=== PATIENT | female | born 1960 | race Caucasian/White ===

== ENCOUNTER 2016-03-09 08:16 | Inpatient (IN) | payer OTHER ==
[~2016-03-09] VITALS: Ht 152.4 cm; Wt 46.5 kg
[2016-03-09] VITALS (9 sets, daily range): BP systolic 97–162; BP diastolic 50–80; PULSE 68–104; RESP 14–24; TEMP 97.5; O2SAT 95–98
[~2016-03-09 08:16] MED LIST: CELE40TA PO
[2016-03-09] MEDS ORDERED: SIMV20TA PO (08:55)
[2016-03-09] MEDS ORDERED: OXYC-392 PO (08:55)
[2016-03-09] MEDS ORDERED: SODIUM CHLOR 0.9% 1000 ML INJ 1,000 ML IV SCH (09:57)
[2016-03-09] MEDS ORDERED: FAMOTIDINE 20 MG/2 ML VIAL IV PUSH ONE (10:00)
[2016-03-09] MEDS ORDERED: ONDANSETRON HCL 4 MG/2 ML VIAL IVP ONE (10:00)
[2016-03-09] MEDS ORDERED: MORPHINE SULFATE 4 MG/ML INJ IV PUSH ONE (10:00)
[2016-03-09] MEDS ORDERED: SODIUM CHLORIDE 0.9% FLUSH 5 ML FLUSH IVF PRN (10:00)
[2016-03-09 10:29] LABS: AUTOMATED NEUTROPHIL # 9.4 TH/MM3 (1.8-7.7); BASOPHIL % 0.3 % (0.0-2.0); EOSINOPHIL # 0.1 TH/MM3 (0-0.4); EOSINOPHIL % 0.7 % (0.0-4.0); HEMATOCRIT 41.7 % (35.0-46.0); HEMO FLAGS DIFF FINAL; LYMPH % 14.1 % (9.0-44.0); LYMPHOCYTE # 1.8 TH/MM3 (1.0-4.8); MEAN CELL VOLUME 88.9 FL (80.0-100.0); MEAN CORPUSCULAR HEMOGLOBIN 29.8 PG (27.0-34.0); MEAN CORPUSCULAR HGB CONC 33.5 % (32.0-36.0); MONO % 11.4 % (0.0-8.0); NEUT % 73.5 % (16.0-70.0); PLATELET COUNT 356 TH/MM3 (150-450); RED BLOOD COUNT 4.69 MIL/MM3 (4.00-5.30); RED CELL DISTRIBUTION WIDTH 13.7 % (11.6-17.2); WHITE BLOOD COUNT 12.9 TH/MM3 (4.0-11.0)
[2016-03-09 10:31] LABS: BLOOD, URINE NEG (NEG); COMMENT (UR) CULT NOT INDICATED; CULTURE IF INDICATED CULT NOT INDICATED; GLUCOSE,URINE NEG (NEG); KETONE, URINE NEG (NEG); NITRITE,URINE NEG (NEG); SQUAMOUS EPITHELIAL CELL URINE 2 /hpf (0-5); URINE COLOR YELLOW (YELLW/STRAW)
[2016-03-09 10:37] LABS: APTT (PATIENT) 28.9 SEC (24.3-30.1); PROTHROMBIN TIME - PATIENT 10.7 SEC (9.8-11.6)
--- NOTE | 2016-03-09 10:59 | RADRPT ---
EXAM DATE/TIME: 03/09/2016 10:38 [facility] COMPARISON: No previous studies available for comparison. INDICATIONS : Left upper quadrant pain. MEDICAL HISTORY : Pancreatitis. SURGICAL HISTORY : None. ENCOUNTER: Initial ACUITY: 3 days PAIN SCORE: 8/10 LOCATION: Left upper quadrant FINDINGS: A single view of the chest demonstrates the lungs to be symmetrically aerated without evidence of mas s, infiltrate or effusion. The cardiomediastinal contours are unremarkable. Osseous structures are intact. CONCLUSION: No acute disease. Ankush Heredia MD FACR on March 09, 2016 at 10:58 Board Certified Radiologist. This report was verified electronically.
[2016-03-09 11:03] LABS: ANION GAP 8 MEQ/L (5-15); AST (GOT) 19 U/L (15-37); BICARBONATE 29.6 MEQ/L (21.0-32.0); BLOOD UREA NITROGEN 6 MG/DL (7-18); CHLORIDE 101 MEQ/L (98-107); GLOMERULAR FILTRATION RATE 108 ML/MIN (>89); POTASSIUM 3.7 MEQ/L (3.5-5.1); SODIUM (NA) 139 MEQ/L (136-145)
[2016-03-09 11:08] LABS: ALKALINE PHOSPHATASE 97 U/L (45-117); ALT (GPT) 35 U/L (10-53); TOTAL BILIRUBIN ADULT 0.3 MG/DL (0.2-1.0)
[2016-03-09] MEDS ORDERED: MORPHINE SULFATE 8 MG/ML INJ IV PUSH ONE (12:00)
[2016-03-09] MEDS ORDERED: IOHEXOL 350 MG/ML 10 ML VIAL (for RAD DIAG) IV ONE (12:53)
--- NOTE | 2016-03-09 13:41 | RADRPT ---
EXAM DATE/TIME: 03/09/2016 12:46 [facility] COMPARISON: No previous studies available for comparison. INDICATIONS : Abdominal pain for three days. IV CONTRAST: 96 cc Omnipaque 350 (iohexol) IV ORAL CONTRAST: No oral contrast ingested. RADIATION DOSE: 9.96 CTDIvol (mGy) MEDICAL HISTORY : Pancreatic cyst. SURGICAL HISTORY : None. ENCOUNTER: Initial ACUITY: 3 days PAIN SCALE: 5/10 LOCATION: Bilateral upper quadrant TECHNIQUE: Volumetric scanning of the abdomen and pelvis was performed. Using automated exposure control and ad justment of the mA and/or kV according to patient size, radiation dose was kept as low as reasonably achievable to obtain optimal diagnostic quality images. FINDINGS: LOWER LUNGS: The visualized lower lungs are clear. LIVER: Homogeneous density without lesion. There is no dilation of the biliary tree. No calcified gallston es. SPLEEN: Normal size without lesion. PANCREAS: Pancreas is normal size with ectatic and prominent pancreatic duct throughout to 6 mm in width in the body and head. There mild inflammatory changes in the peripancreatic region of the head and adjacent body suggesting pancreatitis. KIDNEYS: Normal in size and shape. There is no mass, stone or hydronephrosis. Small cyst upper pole of the le ft kidney ADRENAL GLANDS: Within normal limits. VASCULAR: There is no aortic aneurysm. BOWEL/MESENTERY: The stomach, small bowel, and colon demonstrate no acute abnormality. There is no free intraperitone al air or fluid. Appendix visualized and normal. A few uncomplicated diverticuli of the proximal sigm oid colon. \ ABDOMINAL WALL: Within normal limits. RETROPERITONEUM: There is no lymphadenopathy. BLADDER: No wall thickening or mass. REPRODUCTIVE: Within normal limits. INGUINAL: There is no lymphadenopathy or hernia. MUSCULOSKELETAL: Within normal limits for patient age. CONCLUSION: Abnormal pancreas with dilated ectatic pancreatic duct throughout up to 6 mm in width with inflammatory changes in the peripancreatic fat in the region of the head of pancreas as well as adjacent body consistent with pancreatitis. A few uncomplicated diverticuli sigmoid colon. Trae Cason MD on March 09, 2016 at 13:35 Board Certified Radiologist. This report was verified electronically.
[2016-03-09] MEDS ORDERED: MAGNESIUM HYDROXIDE SUSP 30 ML CUP PO PRN (14:30)
[2016-03-09] MEDS ORDERED: ACETAMINOPHEN 325 MG TAB PO PRN (14:30)
[2016-03-09] MEDS ORDERED: NALOXONE HCL 0.4 MG/ML AMP IV PRN (14:30)
[2016-03-09] MEDS ORDERED: BISACODYL 10 MG SUPP PR PRN (14:30)
[2016-03-09] MEDS ORDERED: ONDANSETRON HCL 4 MG/2 ML VIAL IVP PRN (14:30)
[2016-03-09] MEDS: NS + KCL 20 MEQ INJ 1,000 ML IV SCH (15:15)
--- NOTE | 2016-03-09 15:44 | PD ---
HPI Chief Complaint: Abdominal Pain Time Seen by Provider: 09:50 Travel History International Travel<30 days: No Contact w/Intl Traveler<30days: No Traveled to known affect area: No History of Present Illness HPI Patient is a 55-year-old female who presents to emergency room with complaints of abdominal pain. Patient reports that she has had epigastric abdominal pain for the past 7 months, reports that she has had multiple studies including CAT scans of her abdomen pelvis and reports that "no one could tell me why I was having all this pain." Patient reports that after she followed up with Dr. Eduardo and had an endoscopy which was benign. Reports that Dr Eduardo ordered a ct of her abd pelvis last week and reports that they found a pancreatic cyst. Reports that she used to be an alcoholic and quit drinking "a few years ago." Reports that she was diagnosed with pancreatitis 3 years ago most likely secondary to alcoholism, - reports that this is when she stopped drinking. Patient reports that the pain has been more severe over the past couple days, reports increased nausea with no vomiting or diarrhea. Patient reports that she is prescribed oxycodone 5 mg her pain, reports that this has not been helping for symptoms at all. Patient with no fevers or chills or no other complaints at this time. PFSH Past Medical History Depression: Yes Diabetes: No Psychiatric: Yes Immunizations Current: Yes Menopausal: Yes Past Surgical History Gynecologic Surgery: Yes (LEFT OVARY) Family History Family History: Negative Social History Alcohol Use: No (quit a week ago) Tobacco Use: Yes (8 CIGS DAILY) Substance Use: Yes (2 GLASSES WINE DAILY/DRANK WINE TONIGHT) Allergies-Medications (Allergen,Severity, Reaction): Coded Allergies: No Known Allergies (Unverified , 03/09/16) Reported Meds & Prescriptions Reported Meds & Active Scripts Active Reported Oxycodone (Oxycodone HCl) 5 Mg Tab 5 Mg PO Q4H PRN Simvastatin 20 Mg Tab 20 Mg PO DAILY Review of Systems General / Constitutional: No: Fever Eyes: No: Visual changes HENT: No: Headaches Cardiovascular: No: Chest Pain or Discomfort Respiratory: No: Shortness of Breath Gastrointestinal: Positive: Nausea, Abdominal Pain, No: Vomiting, Diarrhea Genitourinary: No: Dysuria Musculoskeletal: No: Pain Skin: No Rash Neurologic: No: Weakness Psychiatric: No: Depression Endocrine: No: Polydipsia Hematologic/Lymphatic: No: Easy Bruising Physical Exam Narrative GENERAL: Patient in moderate distress SKIN: Warm and dry. HEAD: Atraumatic. Normocephalic. EYES: Pupils equal and round. No scleral icterus. No injection or drainage. ENT: No nasal bleeding or discharge. Mucous membranes pink and moist. NECK: Trachea midline. No JVD. CARDIOVASCULAR: Regular rate and rhythm. No murmur appreciated. RESPIRATORY: No accessory muscle use. Clear to auscultation. Breath sounds equal bilaterally. GASTROINTESTINAL: Abdomen soft, increased tenderness to her epigastrium with guarding on exam MUSCULOSKELETAL: No obvious deformities. No clubbing. No cyanosis. No edema. NEUROLOGICAL: Awake and alert. No obvious cranial nerve deficits. Motor grossly within normal limits. Normal speech. PSYCHIATRIC: Appropriate mood and affect; insight and judgment normal. Data Data Last Documented VS Vital Signs Date Time Temp Pulse Resp B/P Pulse Ox O2 Delivery O2 Flow Rate FiO2 03/09/16 12:34 16 03/09/16 12:25 96 131/63 96 Room Air 03/09/16 08:17 97.5 Orders Complete Blood Count With Diff (03/09/16 09:57) Comprehensive Metabolic Panel (03/09/16 09:57) Lipase (03/09/16 09:57) Lactic Acid (03/09/16 09:57) Prothrombin Time / Inr (Pt) (03/09/16 09:57) Act Partial Throm Time (Ptt) (03/09/16 09:57) Urinalysis - C+S If Indicated (03/09/16 09:57) Ct Abd/Pel W Iv Contrast(Rout) (03/09/16 09:57) Iv Access Insert/Monitor (03/09/16 09:57) Ecg Monitoring (03/09/16 09:57) Oximetry (03/09/16 09:57) NPO (03/09/16 09:57) Morphine Inj (Morphine Inj) (03/09/16 10:00) Ondansetron Inj (Zofran Inj) (03/09/16 10:00) Sodium Chlor 0.9% 1000 Ml Inj (Ns 1000 M (03/09/16 09:57) Sodium Chloride 0.9% Flush (Ns Flush) (03/09/16 10:00) Electrocardiogram (03/09/16 09:57) Chest, Single Ap (03/09/16 09:57) Famotidine Inj (Pepcid Inj) (03/09/16 10:00) Morphine Inj (Morphine Inj) (03/09/16 12:00) Iohexol 350 Inj (Omnipaque 350 Inj) (03/09/16 12:53) Place In Observation (03/09/16 ) Vital Signs (Adult) Q4H (03/09/16 14:17) Activity Oob With Assistance (03/09/16 14:17) Skirt Clipper / Telemetry .CONTINUOUS (03/09/16 14:17) Intake + Output MIHAELA.QSHIFT (03/09/16 14:17) Diet Npo (03/09/16 Dinner) Sodium Chloride 0.9% Flush (Ns Flush) (03/09/16 14:30) Sodium Chloride 0.9% Flush (Ns Flush) (03/09/16 21:00) Acetaminophen (Tylenol) (03/09/16 14:30) Ondansetron Inj (Zofran Inj) (03/09/16 14:30) Bisacodyl Supp (Dulcolax Supp) (03/09/16 14:30) Docusate Sodium (Colace) (03/09/16 21:00) Magnesium Hydroxide Liq (Milk Of Magnesi (03/09/16 14:30) Sennosides (Senokot) (03/09/16 14:30) Comprehensive Metabolic Panel (03/10/16 06:00) Complete Blood Count With Diff (03/10/16 06:00) Lipase (03/10/16 06:00) Case Management Consult (03/09/16 14:17) Scd Bilateral/Knee High MIHAELA.BID (03/09/16 14:17) Morphine Inj (Morphine Inj) (03/09/16 14:30) Morphine Inj (Morphine Inj) (03/09/16 14:30) Naloxone Inj (Narcan Inj) (03/09/16 14:30) Pantoprazole Inj (Protonix Inj) (03/10/16 09:00) Ns + Kcl 20 Meq Inj (Ns + Kcl 20 Meq Inj (03/09/16 15:00) Admit Order (Ed Use Only) (03/09/16 15:01) Labs Laboratory Tests Test 03/09/16 03/09/16 10:00 10:05 Urine Color YELLOW Urine Turbidity CLEAR Urine pH 7.0 Urine Specific [place] 1.007 Urine Protein NEG mg/dL Urine Glucose (UA) NEG mg/dL Urine Ketones NEG mg/dL Urine Occult Blood NEG Urine Nitrite NEG Urine Bilirubin NEG Urine Urobilinogen LESS THAN 2.0 MG/DL Urine Leukocyte Esterase SMALL Urine RBC 1 /hpf Urine WBC 2 /hpf Urine Squamous Epithelial 2 /hpf Cells Microscopic Urinalysis Comment CULT NOT INDICATED White Blood Count 12.9 TH/MM3 Red Blood Count 4.69 MIL/MM3 Hemoglobin 14.0 GM/DL Hematocrit 41.7 % Mean Corpuscular Volume 88.9 FL Mean Corpuscular Hemoglobin 29.8 PG Mean Corpuscular Hemoglobin 33.5 % Concent Red Cell Distribution Width 13.7 % Platelet Count 356 TH/MM3 Mean Platelet Volume 7.7 FL Neutrophils (%) (Auto) 73.5 % Lymphocytes (%) (Auto) 14.1 % Monocytes (%) (Auto) 11.4 % Eosinophils (%) (Auto) 0.7 % Basophils (%) (Auto) 0.3 % Neutrophils # (Auto) 9.4 TH/MM3 Lymphocytes # (Auto) 1.8 TH/MM3 Monocytes # (Auto) 1.5 TH/MM3 Eosinophils # (Auto) 0.1 TH/MM3 Basophils # (Auto) 0.0 TH/MM3 CBC Comment DIFF FINAL Differential Comment Prothrombin Time 10.7 SEC Prothromb Time International 1.0 RATIO Ratio Activated Partial 28.9 SEC Thromboplast Time Sodium Level 139 MEQ/L Potassium Level 3.7 MEQ/L Chloride Level 101 MEQ/L Carbon Dioxide Level 29.6 MEQ/L Anion Gap 8 MEQ/L Blood Urea Nitrogen 6 MG/DL Creatinine 0.58 MG/DL Estimat Glomerular Filtration 108 ML/MIN Rate Random Glucose 94 MG/DL Lactic Acid Level 0.8 mmol/L Calcium Level 9.4 MG/DL Total Bilirubin 0.3 MG/DL Aspartate Amino Transf 19 U/L (AST/SGOT) Alanine Aminotransferase 35 U/L (ALT/SGPT) Alkaline Phosphatase 97 U/L Total Protein 7.4 GM/DL Albumin 4.1 GM/DL Lipase 47311 U/L MDM Medical Decision Making Medical Screen Exam Complete: Yes Emergency Medical Condition: Yes Interpretation(s) EKG at 1042: Normal sinus rhythm at 76 bmp, qt/qtc: 384/414, no acute st or t wave changes Vital Signs Date Time Temp Pulse Resp B/P Pulse Ox O2 Delivery O2 Flow Rate FiO2 03/09/16 12:34 16 03/09/16 12:30 20 03/09/16 12:25 96 19 131/63 96 Room Air 03/09/16 08:17 97.5 104 24 162/69 97 Room Air Laboratory Tests Test 03/09/16 03/09/16 10:00 10:05 Urine Color YELLOW (YELLW/STRAW) Urine Turbidity CLEAR (CLEAR) Urine pH 7.0 (5.0-8.5) Urine Specific [place] 1.007 (1.002-1.035) Urine Protein NEG mg/dL (NEG-TRACE) Urine Glucose (UA) NEG mg/dL (NEG) Urine Ketones NEG mg/dL (NEG) Urine Occult Blood NEG (NEG) Urine Nitrite NEG (NEG) Urine Bilirubin NEG (NEG) Urine Urobilinogen LESS THAN 2.0 MG/DL (LESS THAN 2.0) Urine Leukocyte Esterase SMALL (NEG) Urine RBC 1 /hpf (0-3) Urine WBC 2 /hpf (0-5) Urine Squamous Epithelial 2 /hpf (0-5) Cells Microscopic Urinalysis Comment CULT NOT INDICATED White Blood Count 12.9 TH/MM3 (4.0-11.0) Red Blood Count 4.69 MIL/MM3 (4.00-5.30) Hemoglobin 14.0 GM/DL (11.6-15.3) Hematocrit 41.7 % (35.0-46.0) Mean Corpuscular Volume 88.9 FL (80.0-100.0) Mean Corpuscular Hemoglobin 29.8 PG (27.0-34.0) Mean Corpuscular Hemoglobin 33.5 % Concent (32.0-36.0) Red Cell Distribution Width 13.7 % (11.6-17.2) Platelet Count 356 TH/MM3 (150-450) Mean Platelet Volume 7.7 FL (7.0-11.0) Neutrophils (%) (Auto) 73.5 % (16.0-70.0) Lymphocytes (%) (Auto) 14.1 % (9.0-44.0) Monocytes (%) (Auto) 11.4 % (0.0-8.0) Eosinophils (%) (Auto) 0.7 % (0.0-4.0) Basophils (%) (Auto) 0.3 % (0.0-2.0) Neutrophils # (Auto) 9.4 TH/MM3 (1.8-7.7) Lymphocytes # (Auto) 1.8 TH/MM3 (1.0-4.8) Monocytes # (Auto) 1.5 TH/MM3 (0-0.9) Eosinophils # (Auto) 0.1 TH/MM3 (0-0.4) Basophils # (Auto) 0.0 TH/MM3 (0-0.2) CBC Comment DIFF FINAL Differential Comment Prothrombin Time 10.7 SEC (9.8-11.6) Prothromb Time International 1.0 RATIO Ratio Activated Partial 28.9 SEC Thromboplast Time (24.3-30.1) Sodium Level 139 MEQ/L (136-145) Potassium Level 3.7 MEQ/L (3.5-5.1) Chloride Level 101 MEQ/L (98-107) Carbon Dioxide Level 29.6 MEQ/L (21.0-32.0) Anion Gap 8 MEQ/L (5-15) Blood Urea Nitrogen 6 MG/DL (7-18) Creatinine 0.58 MG/DL (0.50-1.00) Estimat Glomerular Filtration 108 ML/MIN Rate (>89) Random Glucose 94 MG/DL (74-106) Lactic Acid Level 0.8 mmol/L (0.4-2.0) Calcium Level 9.4 MG/DL (8.5-10.1) Total Bilirubin 0.3 MG/DL (0.2-1.0) Aspartate Amino Transf 19 U/L (15-37) (AST/SGOT) Alanine Aminotransferase 35 U/L (10-53) (ALT/SGPT) Alkaline Phosphatase 97 U/L (45-117) Total Protein 7.4 GM/DL (6.4-8.2) Albumin 4.1 GM/DL (3.4-5.0) Lipase 37905 U/L (73-393) Last Impressions Chest X-Ray 03/09/16 0957 Signed Impressions: Service Date/Time: Wednesday, March 09, 2016 10:38 - CONCLUSION: No acute disease. Ankush Heredia MD FACR Abdomen/Pelvis CT 03/09/16956 Signed Impressions: Service Date/Time: Wednesday, March 09, 2016 12:46 - CONCLUSION: Abnormal pancreas with dilated ectatic pancreatic duct throughout up to 6 mm in width with inflammatory changes in the peripancreatic fat in the region of the head of pancreas as well as adjacent body consistent with pancreatitis. A few uncomplicated diverticuli sigmoid colon. Trae Cason MD Differential Diagnosis Acute pancreatitis, ACS, acute gastritis, gastric enteritis, gastric ulcer, electrolyte abnormality Narrative Course Patient is a 55-year-old female who presents to emergency room with complaints of epigastric abdominal pain for the past 7 months. She was recently seen by her GI doctor or Dr. Eduardo with Gi at [facility] and was diagnosed with a pancreatic cyst last week. Patient reports excruciating pain over the past few days with increased nausea. Patient was placed on monitor upon arrival to emergency room. CBC, BMP, lipase as well as CT abdomen pelvis ordered for further evaluation of symptoms. cbc; WBC 12.9 Hemoglobin 14 Hematocrit 41.7 Platelets 356 BMP Sodium 139 Chloride 101 Potassium 3.7 CO2 29.6 Lactic acid 0.8 Lipase 22,589 Chest x-ray: No acute disease CAT scan of abdomen and pelvis with IV contrast: Last Impressions Chest X-Ray 03/09/16956 Signed Impressions: Service Date/Time: Wednesday, March 09, 2016 10:38 - CONCLUSION: No acute disease. Ankush Heredia MD [facility]Pelvis CT 03/09/16956 Signed Impressions: Service Date/Time: Wednesday, March 09, 2016 12:46 - CONCLUSION: Abnormal pancreas with dilated ectatic pancreatic duct throughout up to 6 mm in width with inflammatory changes in the peripancreatic fat in the region of the head of pancreas as well as adjacent body consistent with pancreatitis. A few uncomplicated diverticuli sigmoid colon. Trae Cason MD All labs and studies reviewed with patient in detail. Patient uncomfortable and unable to be discharged home safely. Patient will be admitted to medicine service Case discussed with Dr. Garcia who accepts patient to service. Diagnosis Primary Impression: Acute pancreatitis Qualified Code: K85.90 - Acute pancreatitis, unspecified complication status, unspecified pancreatitis type Admitting Information Admitting Physician Requests: Admit Nani Mathis DO Mar 09, 2016 15:44
--- NOTE | 2016-03-09 15:49 | HHI.HP ---
Dr. Eduardo [facility] Service [facility] Primary Care Physician Non-Staff Admission Diagnosis Acute Pancreatitis Diagnoses: Chief Complaint: Abdominal pain Travel History International Travel<30 Days: No Contact w/Intl Traveler <30 Da: No Traveled to Known Affected Are: No History of Present Illness 55-year-old female with a past medical history of chronic abdominal pain and hyperlipidemia who presented with 2 days acute worsening of her abdominal pain. The patient has been having chronic abdominal pain for the past 7 months. She states that the pain is intermittent. She has been undergoing workup with her first aid instructor, Dr. Eduardo. She states that for the past 2 days the pain is becoming constant, 10/10 in severity, sharp, radiating to the back. She case he has associated nausea. She denies any fevers, chills, or dysuria. She's been taking pain medications at home more frequently, having secondary constipation. She states she had a CAT scan done 7 months ago that was reportedly unremarkable. She states her first aid instructor performed an endoscopic ultrasound which showed nothing to biopsy or perform nerve block. She states due to continued pain she had a repeat CAT scan done last week. She was called by her first aid instructor last Wednesday he said that she has a cyst on her pancreas, but she has been unable to follow up with him because of the severity of pain. Past history of alcohol abuse, had cut back to drinking 1 or 2 beers weekly, last drink about 5 days ago. Review of Systems Other 10 point review of systems performed and was negative except as stated in the history of present illness Past Family Social History Past Medical History Hyperlipidemia Chronic abdominal pain Past Surgical History Left ovary removal Endoscopic ultrasound Reported Medications Oxycodone (Oxycodone HCl) 5 Mg Tab 5 Mg PO Q4H PRN Simvastatin 20 Mg Tab 20 Mg PO DAILY Allergies: Coded Allergies: No Known Allergies (Unverified , 03/09/16) Active Ordered Medications Current Medications Medications (Trade) Dose Ordered Sig/Ever Route Start Time Stop Time Status Last Admin (NS Flush) 2 ml UNSCH PRN FLUSH 03/09/16 14:30 (NS Flush) 2 ml BID FLUSH 03/09/16 21:00 (Tylenol) 650 mg Q4H PRN PO 03/09/16 14:30 (Zofran Inj) 4 mg Q6H PRN IVP 03/09/16 14:30 (Dulcolax Supp) 10 mg DAILY PRN SC 03/09/16 14:30 (Colace) 100 mg Q12H PO 03/09/16 21:00 (Milk Of Magnrg Liq) 30 ml Q12H PRN PO 03/09/16 14:30 (Senokot) 17.2 mg Q12H PRN PO 03/09/16 14:30 (Morphine Inj) 2 mg Q3H PRN IV 03/09/16 14:30 (Morphine Inj) 4 mg Q3H PRN IV 03/09/16 14:30 (Narcan Inj) 0.4 mg UNSCH PRN IV 03/09/16 14:30 Pantoprazole Sodium 40 mg 40 mg Q24H IV PUSH 03/10/16 09:00 (NS + KCl 20 Meq Inj) 1,000 ml @ 100 mls/hr Q10H IV 03/09/16 15:00 03/09/16 15:15 Family History DM Social History History of alcohol abuse Tobacco use Occasional marijuana use Physical Exam Vital Signs Vital Signs Date Time Temp Pulse Resp B/P Pulse Ox O2 Delivery O2 Flow Rate FiO2 03/09/16 15:16 82 18 101/52 96 Room Air 03/09/16 12:34 16 03/09/16 12:30 20 03/09/16 12:25 96 19 131/63 96 Room Air 03/09/16 08:17 97.5 104 24 162/69 97 Room Air Physical Exam GENERAL: Well-developed well-nourished. In no acute distress. SKIN: Warm and dry. No lesions noted. HEENT: Normocephalic. Pupils equal and round. Mucous membranes pink and moist. CARDIOVASCULAR: Regular rate and rhythm. No murmur appreciated. RESPIRATORY: No accessory muscle use. Clear to auscultation. Breath sounds equal bilaterally. GASTROINTESTINAL: Abdomen soft, epigastric TTP, nondistended. Bowel sounds x4. MUSCULOSKELETAL: No obvious deformities. No clubbing or cyanosis. No edema. NEUROLOGICAL: Awake and alert. No focal neurological deficits. Moves upper and lower extremities spontaneously. Normal speech. PSYCHIATRIC: Appropriate mood and affect; insight and judgment normal. Laboratory Laboratory Tests Test 03/09/16 03/09/16 10:00 10:05 Urine Color YELLOW Urine Turbidity CLEAR Urine pH 7.0 Urine Specific [place] 1.007 Urine Protein NEG Urine Glucose (UA) NEG Urine Ketones NEG Urine Occult Blood NEG Urine Nitrite NEG Urine Bilirubin NEG Urine Urobilinogen LESS THAN 2.0 Urine Leukocyte Esterase SMALL Urine RBC 1 Urine WBC 2 Urine Squamous Epithelial 2 Cells Microscopic Urinalysis Comment CULT NOT INDICATED White Blood Count 12.9 Red Blood Count 4.69 Hemoglobin 14.0 Hematocrit 41.7 Mean Corpuscular Volume 88.9 Mean Corpuscular Hemoglobin 29.8 Mean Corpuscular Hemoglobin 33.5 Concent Red Cell Distribution Width 13.7 Platelet Count 356 Mean Platelet Volume 7.7 Neutrophils (%) (Auto) 73.5 Lymphocytes (%) (Auto) 14.1 Monocytes (%) (Auto) 11.4 Eosinophils (%) (Auto) 0.7 Basophils (%) (Auto) 0.3 Neutrophils # (Auto) 9.4 Lymphocytes # (Auto) 1.8 Monocytes # (Auto) 1.5 Eosinophils # (Auto) 0.1 Basophils # (Auto) 0.0 CBC Comment DIFF FINAL Differential Comment Prothrombin Time 10.7 Prothromb Time International 1.0 Ratio Activated Partial 28.9 Thromboplast Time Sodium Level 139 Potassium Level 3.7 Chloride Level 101 Carbon Dioxide Level 29.6 Anion Gap 8 Blood Urea Nitrogen 6 Creatinine 0.58 Estimat Glomerular Filtration 108 Rate Random Glucose 94 Lactic Acid Level 0.8 Calcium Level 9.4 Total Bilirubin 0.3 Aspartate Amino Transf 19 (AST/SGOT) Alanine Aminotransferase 35 (ALT/SGPT) Alkaline Phosphatase 97 Total Protein 7.4 Albumin 4.1 Lipase 08141 Result Diagram: 03/09/16 1005 03/09/16 1005 Imaging Last Impressions Chest X-Ray 03/09/16956 Signed Impressions: Service Date/Time: Wednesday, March 09, 2016 10:38 - CONCLUSION: No acute disease. Ankush Heredia MD FACR Abdomen/Pelvis CT 03/09/16956 Signed Impressions: Service Date/Time: Wednesday, March 09, 2016 12:46 - CONCLUSION: Abnormal pancreas with dilated ectatic pancreatic duct throughout up to 6 mm in width with inflammatory changes in the peripancreatic fat in the region of the head of pancreas as well as adjacent body consistent with pancreatitis. A few uncomplicated diverticuli sigmoid colon. Trae Cason MD Assessment and Plan Problem List: (1) Acute pancreatitis ICD Code: K85.90 Status: Acute Assessment and Plan 55-year-old female with a past medical history of chronic abdominal pain and hyperlipidemia who presented with 2 days acute worsening of her abdominal pain Acute pancreatitis: Labs review: Lipase 23K. LFTs within normal limits. Images reviewed: Abdomen and pelvis CT were reviewed, abnormal pancreas with dilated ectatic pancreatic duct with inflammatory changes in the peripancreatic fat in the region of the head of the pancreas as well as adjacent body. Plan: Nothing by mouth, ok for ice chips. IVF. Pain control with IV narcotics as needed. Hold statin for now, follow-up triglyceride level. Antiemetics as needed. Follow-up lipase level. Once improved, and needs to continue to follow -up with her first aid instructor as outpatient for chronic abdominal pain. Educated to avoid all triggers especially including alcohol. DVT prophylaxis: SCDs Written by Ricardo Welch, acting as scribe for Dr. Garcia on 03/09/16 at 15:37. The documentation accurately reflects the work performed [id number] by me on at 1537 Code Status Full code Discussed Condition With Patient with SO at bedside, ED physician, case management Problem Qualifiers (1) Acute pancreatitis: Qualified Code: K85.90 - Acute pancreatitis, unspecified complication status, unspecified pancreatitis type Ricardo Welch Mar 09, 2016 15:49 Juan Garcia MD Mar 09, 2016 16:52
[2016-03-09] MEDS: MORPHINE SULFATE 4 MG/ML INJ IV PRN ×3 (16:10→23:29)
--- NOTE | 2016-03-09 16:39 | EKG ---
Date Performed: 03/09/2016 Time Performed: 10:42:37 PTAGE: 55 years EKG: Sinus rhythm NORMAL ECG NO PREVIOUS TRACING DOCTOR: Krystal Warren Interpretating Date/Time 03/09/2016 16:36:52
[2016-03-09] MEDS: DOCUSATE SODIUM 100 MG CAP PO SCH (21:00)
[2016-03-09] MEDS: SODIUM CHLORIDE 0.9% FLUSH 5 ML FLUSH FLUSH SCH (23:29)
[2016-03-10] VITALS (7 sets, daily range): BP systolic 80–115; BP diastolic 43–73; PULSE 73–87; RESP 14–20; TEMP 96.5–98.2; O2SAT 96–98
[2016-03-10] MEDS: NS + KCL 20 MEQ INJ 1,000 ML IV SCH ×3 (01:11→19:59)
[2016-03-10] MEDS: SODIUM CHLORIDE 0.9% FLUSH 5 ML FLUSH FLUSH PRN ×2 (02:41→21:39)
[2016-03-10] MEDS: MORPHINE SULFATE 4 MG/ML INJ IV PRN ×6 (02:45→21:38)
[2016-03-10 05:30] LABS: AUTOMATED NEUTROPHIL # 7.1 TH/MM3 (1.8-7.7); BASOPHIL % 0.4 % (0.0-2.0); EOSINOPHIL # 0.1 TH/MM3 (0-0.4); EOSINOPHIL % 1.1 % (0.0-4.0); HEMATOCRIT 34.5 % (35.0-46.0); HEMO FLAGS DIFF FINAL; LYMPH % 21.7 % (9.0-44.0); LYMPHOCYTE # 2.3 TH/MM3 (1.0-4.8); MEAN CELL VOLUME 88.6 FL (80.0-100.0); MEAN CORPUSCULAR HEMOGLOBIN 29.5 PG (27.0-34.0); MEAN CORPUSCULAR HGB CONC 33.3 % (32.0-36.0); MONO % 10.4 % (0.0-8.0); NEUT % 66.4 % (16.0-70.0); PLATELET COUNT 275 TH/MM3 (150-450); RED BLOOD COUNT 3.89 MIL/MM3 (4.00-5.30); RED CELL DISTRIBUTION WIDTH 13.8 % (11.6-17.2); WHITE BLOOD COUNT 10.6 TH/MM3 (4.0-11.0)
[2016-03-10 06:45] LABS: ALKALINE PHOSPHATASE 73 U/L (45-117); ALT (GPT) 26 U/L (10-53); ANION GAP 8 MEQ/L (5-15); AST (GOT) 17 U/L (15-37); BICARBONATE 26.7 MEQ/L (21.0-32.0); BLOOD UREA NITROGEN 6 MG/DL (7-18); CHLORIDE 104 MEQ/L (98-107); GLOMERULAR FILTRATION RATE 165 ML/MIN (>89); POTASSIUM 3.9 MEQ/L (3.5-5.1); SODIUM (NA) 139 MEQ/L (136-145); TOTAL BILIRUBIN ADULT 0.2 MG/DL (0.2-1.0)
[2016-03-10] MEDS: PANTOPRAZOLE SODIUM 40 MG VIAL IV PUSH SCH (07:47)
[2016-03-10] MEDS: SODIUM CHLORIDE 0.9% FLUSH 5 ML FLUSH FLUSH SCH ×2 (07:48→19:59)
[2016-03-10] MEDS: DOCUSATE SODIUM 100 MG CAP PO SCH ×2 (07:48→19:58)
--- NOTE | 2016-03-10 13:24 | HHI.PR ---
Subjective Remarks Follow-up pancreatitis. Improving pain scale of 6 out of 10. No nausea and vomiting. She wants to eat. Discussed with RN Objective Vitals Vital Signs Date Time Temp Pulse Resp B/P Pulse Ox O2 Delivery O2 Flow Rate FiO2 03/10/16 12:00 98.1 74 17 91/53 97 03/10/16 08:02 87 03/10/16 08:00 97.7 77 16 80/43 97 03/10/16 07:53 18 03/10/16 02:38 96.5 73 20 115/66 98 03/10/16 01:00 86 14 98/60 96 Room Air 03/09/16 20:15 80 97/60 97 Room Air 03/09/16 18:00 68 14 100/72 95 Room Air 03/09/16 17:00 72 24 105/50 96 Room Air 03/09/16 16:00 74 22 102/61 96 Room Air 03/09/16 15:16 82 18 101/52 96 Room Air I/O 03/09/16 03/09/16 03/09/16 03/10/16 03/10/16 03/10/16 07:00 15:00 23:00 07:00 15:00 23:00 Intake Total 1000 ml 1247 ml Balance 1000 ml 1247 ml Intake Oral 0 ml IV Total 1000 ml 1247 ml # Voids 1 # Bowel Movements 0 Result Diagram: 03/10/16 0458 03/10/16 0438 Objective Remarks GENERAL: Well-developed well-nourished. In no acute distress. SKIN: Warm and dry. No lesions noted. HEENT: Normocephalic. Pupils equal and round. Mucous membranes pink and moist. CARDIOVASCULAR: Regular rate and rhythm. No murmur appreciated. RESPIRATORY: No accessory muscle use. Clear to auscultation. Breath sounds equal bilaterally. GASTROINTESTINAL: Abdomen soft, epigastric TTP, nondistended. Bowel sounds x4. MUSCULOSKELETAL: No obvious deformities. No clubbing or cyanosis. No edema. NEUROLOGICAL: Awake and alert. No focal neurological deficits. Moves upper and lower extremities spontaneously. Normal speech. PSYCHIATRIC: Appropriate mood and affect; insight and judgment normal. A/P Problem List: (1) Acute pancreatitis ICD Code: K85.90 Status: Acute Assessment and Plan 55-year-old female with a past medical history of chronic abdominal pain and hyperlipidemia who presented with 2 days acute worsening of her abdominal pain Acute pancreatitis: Labs review: Lipase 23K. LFTs within normal limits. Images reviewed: Abdomen and pelvis CT were reviewed, abnormal pancreas with dilated ectatic pancreatic duct with inflammatory changes in the peripancreatic fat in the region of the head of the pancreas as well as adjacent body. Improving with lipase down to 5000. Triglycerides not elevated. Plan: Advance diet to clears. IVF. Pain control with IV narcotics as needed. Hold statin for now. Antiemetics as needed. Follow-up lipase level. Needs to continue to follow-up with her estate manager as outpatient for chronic abdominal pain. Educated to avoid all triggers especially including alcohol. We'll obtain records and discuss with patient's estate manager regarding dilated pancreatic duct Normocytic normochromic anemia secondary to the lesion. No gross bleeding. Repeat CBC in the morning DVT prophylaxis: SCDs Discharge Planning Not ready for discharge Problem Qualifiers (1) Acute pancreatitis: Qualified Code: K85.90 - Acute pancreatitis, unspecified complication status, unspecified pancreatitis type Juan Garcia MD Mar 10, 2016 13:24
[2016-03-10] MEDS: SENNOSIDES 8.6 MG TAB PO PRN (21:37)
[2016-03-10] MEDS ORDERED: diphenhydrAMINE HCL 25 MG CAP PO ONE (23:45)
[2016-03-11] VITALS: BP 99/57; PULSE 98; RESP 20; TEMP 98.1; O2SAT 97
[2016-03-11] MEDS: MORPHINE SULFATE 4 MG/ML INJ IV PRN ×2 (03:43→07:16)
[2016-03-11 04:00] VITALS: BP 101/61; PULSE 90; RESP 19; TEMP 98.1; O2SAT 94
[2016-03-11 06:51] LABS: BASOPHIL # 0.1 TH/MM3 (0-0.2); BASOPHIL % 0.5 % (0.0-2.0); EOSINOPHIL # 0.2 TH/MM3 (0-0.4); EOSINOPHIL % 1.7 % (0.0-4.0); HEMATOCRIT 33.9 % (35.0-46.0); HEMO FLAGS DIFF FINAL; LYMPH % 17.7 % (9.0-44.0); LYMPHOCYTE # 1.8 TH/MM3 (1.0-4.8); MEAN CELL VOLUME 88.7 FL (80.0-100.0); MEAN CORPUSCULAR HEMOGLOBIN 29.3 PG (27.0-34.0); MONO % 11.7 % (0.0-8.0); NEUT % 68.4 % (16.0-70.0); PLATELET COUNT 281 TH/MM3 (150-450); RED BLOOD COUNT 3.82 MIL/MM3 (4.00-5.30); RED CELL DISTRIBUTION WIDTH 13.6 % (11.6-17.2); WHITE BLOOD COUNT 10.3 TH/MM3 (4.0-11.0)
[2016-03-11 07:15] LABS: BICARBONATE 27.3 MEQ/L (21.0-32.0); MAGNESIUM 1.8 MG/DL (1.5-2.5); POTASSIUM 4.4 MEQ/L (3.5-5.1)
[2016-03-11] MEDS: NS + KCL 20 MEQ INJ 1,000 ML IV SCH (07:17)
[2016-03-11 08:00] VITALS: BP 95/53; PULSE 80; RESP 16; TEMP 98.5; O2SAT 98
[2016-03-11] MEDS: SODIUM CHLORIDE 0.9% FLUSH 5 ML FLUSH FLUSH SCH (08:46)
[2016-03-11] MEDS: DOCUSATE SODIUM 100 MG CAP PO SCH (08:46)
[2016-03-11] MEDS: PANTOPRAZOLE SODIUM 40 MG VIAL IV PUSH SCH (08:46)
[2016-03-11] MEDS: SENNOSIDES 8.6 MG TAB PO PRN (08:48)
[2016-03-11 12:00] VITALS: BP 101/63; PULSE 77; RESP 18; TEMP 98.7; O2SAT 99
--- NOTE | 2016-03-11 12:50 | HHI.PR ---
Subjective Remarks F/U pancreatitis. Improved pain 4/10 tolerating clears. Wants to go home. Brannon RN and GI Dr Eduardo. Seen with Objective Vitals Vital Signs Date Time Temp Pulse Resp B/P Pulse Ox O2 Delivery O2 Flow Rate FiO2 03/11/16 12:00 98.7 77 18 101/63 99 03/11/16 08:00 98.5 80 16 95/53 98 03/11/16 07:21 20 03/11/16 04:00 98.1 90 19 101/61 94 03/11/16 00:00 98.1 98 20 99/57 97 03/10/16 20:13 73 03/10/16 20:00 98.2 74 20 107/73 96 I/O 03/10/16 03/10/16 03/10/16 03/11/16 03/11/16 03/11/16 07:00 15:00 23:00 07:00 15:00 23:00 Intake Total 1247 ml 970 ml 240 ml 1082 ml Output Total 350 ml 800 ml 1000 ml Balance 1247 ml 620 ml -560 ml 82 ml Intake Oral 0 ml 120 ml 240 ml 120 ml IV Total 1247 ml 850 ml 962 ml Output Urine Total 350 ml 800 ml 1000 ml # Voids 1 # Bowel Movements 0 0 0 0 Result Diagram: 03/11/1661903/11/16619 Objective Remarks GENERAL: Well-developed well-nourished. In no acute distress. SKIN: Warm and dry. No lesions noted. HEENT: Normocephalic. Pupils equal and round. Mucous membranes pink and moist. CARDIOVASCULAR: Regular rate and rhythm. No murmur appreciated. RESPIRATORY: No accessory muscle use. Clear to auscultation. Breath sounds equal bilaterally. GASTROINTESTINAL: Abdomen soft, epigastric TTP much improved, nondistended. Bowel sounds x4. MUSCULOSKELETAL: No obvious deformities. No clubbing or cyanosis. No edema. NEUROLOGICAL: Awake and alert. No focal neurological deficits. Moves upper and lower extremities spontaneously. Normal speech. PSYCHIATRIC: Appropriate mood and affect; insight and judgment normal. A/P Problem List: (1) Acute pancreatitis ICD Code: K85.90 Status: Acute Assessment and Plan 55-year-old female with a past medical history of chronic abdominal pain and hyperlipidemia who presented with 2 days acute worsening of her abdominal pain Acute pancreatitis: Labs review: Lipase 23K. LFTs within normal limits. Images reviewed: Abdomen and pelvis CT were reviewed, abnormal pancreas with dilated ectatic pancreatic duct with inflammatory changes in the peripancreatic fat in the region of the head of the pancreas as well as adjacent body. Improving with lipase down to 1800. Triglycerides not elevated. Plan: Advance diet to full for 2 days then soft for 2 days then TONY. Dc IVF. Pain control counselled re: narcotics as needed. Antiemetics as needed. Needs to continue to follow-up with her hunting guide as outpatient for chronic abdominal pain, rpt EUS with biopsy in light of dilated pancreatic duct. Educated to avoid all triggers especially including alcohol. Normocytic normochromic anemia secondary to the lesion. No gross bleeding. Stable DVT prophylaxis: SCDs Discharge Planning Discharge patient to home Condition on discharge: Improved Full liquid then soft then Diet as tolerated Ad Lu activity no driving Rx written: Lortab Follow-up with primary care physician and GI 1 week Problem Qualifiers (1) Acute pancreatitis: Qualified Code: K85.90 - Acute pancreatitis, unspecified complication status, unspecified pancreatitis type Juan Garcia MD Mar 11, 2016 12:50
[2016-03-11] MEDS ORDERED: OXYC1CAP PO (12:58)
--- NOTE | 2016-03-11 12:58 | HHI.DCPOC ---
Discharge Care Plan Diagnosis: (1) Acute pancreatitis Your Health Problems Are: Difficulty with ADL Exercise Tolerance Chronic Pain Goals to Promote Your Health * To prevent worsening of your condition and complications * To maintain your health at the optimal level Directions to Meet Your Goals Take your medications as prescribed Follow your dietary instruction Follow activity as directed Keep your appointments as scheduled Take your immunizations and boosters as scheduled If your symptoms worsen call your PCP, if no PCP go to Urgent Care Center or Emergency Room Smoking is Dangerous to Your Health. Avoid second hand smoke Call the 24-hour hour crisis hotline for domestic abuse at Juan Garcia MD Mar 11, 2016 12:58
[2016-03-17] MEDS ORDERED: OXYC-392 PO (09:58)
== END 2016-03-11 13:33 | disposition home or self-care (01) | DRG 440 ==
LOC: NEPE 08:16 → NEDA 15:03 → N07B 03-10 02:30
PROVIDERS: ADMIT Internal Medicine; ATTEND Internal Medicine
DX: K85.90 Acute pancreatitis without necrosis or infection, unspecified (principal); E78.5 Hyperlipidemia, unspecified; K59.00 Constipation, unspecified; F10.20 Alcohol dependence, uncomplicated; D64.9 Anemia, unspecified; G89.29 Other chronic pain; F12.90 Cannabis use, unspecified, uncomplicated; Z72.0 Tobacco use
CPT/HCPCS: 71010; 74177; 80048; 80053; 81001; 83605; 83690; 83735; 84478; 85025; 85610; 85730; 93005; 96361; 96374; 96375; 96376; C9113; J2270; J2405; J3480; J7030; Q9967